=== PATIENT | female | born 1945 | race Caucasian/White ===

== ENCOUNTER → 2017-04-16 | Outpatient (CLI) | payer MEDICARE, OTHER | LOC: MC.RAD 11:20 | DX: Z12.31 Encounter for screening mammogram for malignant neoplasm of breast (principal) ==

== ENCOUNTER → 2017-04-18 | Outpatient (CLI) | payer MEDICARE, OTHER | LOC: COL.RAD 08:43 | DX: M72.2 Plantar fascial fibromatosis (principal); S96.811A Strain of other specified muscles and tendons at ankle and foot level, right foot, initial encounter; M65.871 Other synovitis and tenosynovitis, right ankle and foot; M67.471 Ganglion, right ankle and foot; I87.2 Venous insufficiency (chronic) (peripheral); M76.61 Achilles tendinitis, right leg; Q72.71 Split foot, right lower limb ==

== ENCOUNTER 2017-06-23 12:30 | Outpatient (RCR) | payer MEDICARE, OTHER | END 2017-08-07 | LOC: WSPT | DX: M76.61 Achilles tendinitis, right leg (principal); M72.2 Plantar fascial fibromatosis; M76.71 Peroneal tendinitis, right leg | CPT/HCPCS: G8978-GP; G8979-GP; G8986-GP ==

== ENCOUNTER → 2018-05-11 | Outpatient (CLI) | payer MEDICARE, OTHER | LOC: MC.RAD 11:40 | DX: Z12.31 Encounter for screening mammogram for malignant neoplasm of breast (principal) ==

== ENCOUNTER → 2019-05-28 | Outpatient (CLI) | payer MEDICARE, OTHER | LOC: MC.RAD 11:11 | DX: Z12.31 Encounter for screening mammogram for malignant neoplasm of breast (principal) ==

== ENCOUNTER 2019-07-06 14:45 | Outpatient (RCR) | payer MEDICARE, OTHER | END 2019-07-20 | disposition home or self-care (01) | LOC: WSPT | DX: E78.2 Mixed hyperlipidemia (principal); M15.0 Primary generalized (osteo)arthritis; R03.0 Elevated blood-pressure reading, without diagnosis of hypertension; K21.9 Gastro-esophageal reflux disease without esophagitis; R53.1 Weakness ==

== ENCOUNTER 2020-05-24 07:57 | Emergency (ER) | payer MEDICARE, OTHER ==
[~2020-05-24] VITALS: Ht 157.5 cm; Wt 71.4 kg
[2020-05-24 08:06] VITALS: TEMP 98
[2020-05-24] MEDS ORDERED: PROTONIX 40MG T40 MG PO (08:24)
[2020-05-24] MEDS ORDERED: MIRAPEX 0.0.125 MG/T (08:25)
[2020-05-24] MEDS ORDERED: TRICOR 48MG48 MG (08:25)
[2020-05-24] MEDS ORDERED: MOBIC15 MG (08:25)
[2020-05-24] MEDS ORDERED: DITROPAN 5MG TAB5 MG PO (08:26)
[2020-05-24] MEDS ORDERED: FLEXERIL5 MG PO (09:27)
[2020-05-24] MEDS ORDERED: ULTRAM 50MG TAB50 MG PO (09:27)
[2020-05-24 09:30] VITALS: BP 170/88; PULSE 76
== END 2020-05-24 09:45 | disposition home or self-care (01) ==
LOC: COL.ER 07:57
DX: M62.838 Other muscle spasm (principal); I10 Essential (primary) hypertension; E78.5 Hyperlipidemia, unspecified; K21.9 Gastro-esophageal reflux disease without esophagitis; Z88.3 Allergy status to other anti-infective agents

== ENCOUNTER → 2020-06-20 | Outpatient (CLI) | payer MEDICARE, OTHER ==
[~2020-06-20] MED LIST: DITROPAN 5MG TAB5 MG PO; FLEXERIL5 MG PO; MIRAPEX 0.0.125 MG/T; MOBIC15 MG; PROTONIX 40MG T40 MG PO; TRICOR 48MG48 MG; ULTRAM 50MG TAB50 MG PO
== END ==
LOC: MC.RAD 05-30 11:30
DX: Z12.31 Encounter for screening mammogram for malignant neoplasm of breast (principal); N63.23 Unspecified lump in the left breast, lower outer quadrant; N64.89 Other specified disorders of breast

== ENCOUNTER 2020-06-25 14:22 | Emergency (ER) | payer MEDICARE, OTHER ==
[~2020-06-25] VITALS: Ht 157.5 cm; Wt 71.4 kg
[~2020-06-25 14:22] MED LIST changes: -MIRAPEX 0.0.125 MG/T; +MIRAPEX 0.0.125 MG/T PO; -MOBIC15 MG; +MOBIC15 MG PO; -TRICOR 48MG48 MG; +TRICOR 48MG48 MG PO
[2020-06-25 14:28] VITALS: TEMP 97.7
[2020-06-25] MEDS ORDERED: RESTASIS0.05% OP (14:41)
[2020-06-25 15:02] LABS: BASO # 0.1 (0.0-0.2); BASO % 1.1 % (0.0-2.0); EOS # 0.3 (0.0-0.7); EOS % 3.1 % (0-4.0); GRAN # 6.2 (1.4-6.5); GRAN % 56.9 % (42.2-75.2); HEMATOCRIT 39.6 % (37.0-47.0); HEMOGLOBIN 13.2 g/dl (12.5-16.0); LYMPH # 3.4 (1.2-3.4); LYMPH % 31.5 % (20.0-51.0); MEAN CELL VOLUME 90 fl (80.0-100.0); MEAN CORPUSCULAR HEMOGLOBIN 30 pg (27.0-31.0); MEAN CORPUSCULAR HGB CONC 33 g/dl (33.0-37.0); MONO # 0.8 (0.1-0.6); PLATELET COUNT 472 K/mm3 (130-400); REDCELL DISTRIBUTION WIDTH-CV 12.5 % (11.5-14.5)
[2020-06-25 15:09] LABS: ALANINE AMINOTRANSFERASE 14 U/L (4-34); ALBUMIN 4.8 gm/dL (3.5-5.0); ALKALINE PHOSPHATASE 52 U/L (50-136); ANION GAP 11 mmol/L (7-16); AST,SGOT 22 U/L (15-37); BILIRUBIN,TOTAL 0.4 mg/dL (0.0-1.0); BLOOD UREA NITROGEN 18 mg/dL (7-17); CALCIUM 9.4 mg/dL (8.4-10.2); CARBON DIOXIDE 25 mmol/L (22-30); CHLORIDE 103 mmol/L (98-107); GLUCOSE 123 mg/dL (74-106); LIPASE 92 U/L (23-300); POTASSIUM 3.6 mmol/L (3.4-5.0); SODIUM 139 mmol/L (137-145)
[2020-06-25 15:12] LABS: C-REACTIVE PROTEIN < 0.5 mg/dL (0.0-0.9)
[2020-06-25 15:18] LABS: TROPONIN-I < 0.012 ng/mL (0.000-0.035)
[2020-06-25] MEDS ORDERED: PRINIVIL10 MG PO (15:58)
[2020-06-25 18:50] VITALS: BP 173/84; PULSE 86
== END 2020-06-25 18:52 | disposition home or self-care (01) ==
LOC: COL.ER 14:22
PROVIDERS: Emergency Medicine
DX: R07.9 Chest pain, unspecified (principal); E78.5 Hyperlipidemia, unspecified; Z88.3 Allergy status to other anti-infective agents

== ENCOUNTER → 2020-06-27 | Outpatient (CLI) | payer MEDICARE, OTHER ==
[~2020-06-27] MED LIST changes: +PRINIVIL10 MG PO; +RESTASIS0.05% OP
== END ==
LOC: MC.RAD 13:49
DX: N60.01 Solitary cyst of right breast (principal); R92.2 Inconclusive mammogram

== ENCOUNTER → 2021-08-14 | Outpatient (CLI) | payer MEDICARE, OTHER | LOC: MC.RAD 11:30 | DX: Z12.31 Encounter for screening mammogram for malignant neoplasm of breast (principal) ==

== ENCOUNTER → 2022-01-18 | Outpatient (CLI) | payer MEDICARE, OTHER | LOC: COL.RAD 07:38 | DX: M47.22 Other spondylosis with radiculopathy, cervical region (principal); M48.02 Spinal stenosis, cervical region ==

== ENCOUNTER → 2022-02-13 | Outpatient (CLI) | payer MEDICARE, OTHER | LOC: MHCPAIN 08:33 | DX: M47.812 Spondylosis without myelopathy or radiculopathy, cervical region (principal); M54.2 Cervicalgia; M54.18 Radiculopathy, sacral and sacrococcygeal region; R51.9 Headache, unspecified | CPT/HCPCS: G0463 ==

== ENCOUNTER → 2022-02-28 | Outpatient (CLI) | payer MEDICARE, OTHER | LOC: MHCPAIN 12:45 | DX: M47.812 Spondylosis without myelopathy or radiculopathy, cervical region (principal); M54.2 Cervicalgia; G44.86 Cervicogenic headache | CPT/HCPCS: J0461 ==

== ENCOUNTER → 2022-03-06 | Outpatient (CLI) | payer MEDICARE, OTHER | LOC: MHCPAIN 13:28 | DX: M47.812 Spondylosis without myelopathy or radiculopathy, cervical region (principal); M54.2 Cervicalgia; G44.86 Cervicogenic headache; M54.81 Occipital neuralgia | CPT/HCPCS: G0463 ==

== ENCOUNTER → 2022-03-14 | Outpatient (CLI) | payer MEDICARE, OTHER | LOC: MHCPAIN 12:52 | DX: M47.812 Spondylosis without myelopathy or radiculopathy, cervical region (principal); M54.2 Cervicalgia; R51.9 Headache, unspecified ==

== ENCOUNTER → 2022-04-01 | Outpatient (CLI) | payer MEDICARE, OTHER | LOC: MHCPAIN 11:51 | DX: M47.812 Spondylosis without myelopathy or radiculopathy, cervical region (principal); M54.2 Cervicalgia; G44.86 Cervicogenic headache | CPT/HCPCS: G0463; J1100; J2250; J3010 ==

== ENCOUNTER → 2023-10-21 | Outpatient (CLI) | payer MEDICARE | LOC: MC.RAD 09:24 | DX: Z12.31 Encounter for screening mammogram for malignant neoplasm of breast (principal) ==